=== PATIENT | male | born 1990 | race African-American/Black ===

== ENCOUNTER 2023-09-21 11:02 | Emergency (ER) | payer SELFPAY ==
[~2023-09-21] VITALS: Ht 180.3 cm; Wt 104.5 kg
[2023-09-21 11:15] VITALS: TEMP 97.6
[2023-09-21 11:20] VITALS: BP 143/74; PULSE 69; RESP 18; O2SAT 98
== END 2023-09-21 14:37 | disposition left against medical advice (07) ==
LOC: ER 11:02
DX: M79.674 Pain in right toe(s) (principal); Z53.21 Procedure and treatment not carried out due to patient leaving prior to being seen by health care provider